=== PATIENT | male | born 1945 | race Caucasian/White ===

== ENCOUNTER 2021-04-12 16:59 | Emergency (ER) | payer MEDICARE ==
[2021-04-12] MEDS ORDERED: Bisacodyl 10 MG SUPP ONE (17:50)
[2021-04-12] MEDS ORDERED: Magnesium Citrate 300 ML BOT ONE (17:50)
== END 2021-04-12 18:36 | disposition home or self-care (01) ==
LOC: BURERS 16:59
DX: K59.00 Constipation, unspecified (principal); K64.4 Residual hemorrhoidal skin tags; E11.9 Type 2 diabetes mellitus without complications; I25.2 Old myocardial infarction
CPT/HCPCS: 82274; 99283